=== PATIENT | female | born 1945 | race Caucasian/White ===

== ENCOUNTER → 2022-11-27 | Outpatient (CLI) | payer MEDICARE, BC, SELFPAY ==
--- NOTE | 2022-11-27 08:55 | BD_ITS ---
STUDY: DUAL ENERGY X-RAY ABSORPTIOMETRY / DXA REASON FOR EXAM: Female, 77 years old. SCREENING TECHNIQUE: Bone Mineral Density (BMD) measurements of lumbar spine and bilateral hips were obtained. COMPARISON: None. FINDINGS: Lumbar Spine (L1-L4): g/cm2 (0.869) / T-score (-1.6) / Z-score (0.9) Findings are suggestive of osteopenia with a moderate fracture risk. Left Femur Total: g/cm2 (0.660) / T-score (-2.3) / Z-score (-0.4) Left Femoral Neck: g/cm2 (0.470) / T-score (-3.4) / Z-score (-1.3) Right Femur Total: g/cm2 (0.661) / T-score (-2.3) / Z-score (-0.4) Right Femoral Neck: g/cm2 (0.505) / T-score (-3.1) / Z-score (-0.9) BD/Dexa Bone Density Study IMPRESSION: The patient is considered osteoporotic as outlined below according to World [employer] (WHO) criteria with a high fracture risk. Reference Information: The T-score is the number of standard deviations above or below the standard which is normal for young adults at their peak bone mineral density. The World Health Organization (WHO) interprets the T-scores as follows: Above -1 Normal bone density Between -1 and -2.5 Osteopenia Equal to / or below -2.5 Osteoporosis As a practical clinical guideline, osteopenia may be graded as follows: Mild -1 through -1.5 Moderate -1.6 through -2.0 Severe -2.1 through -2.4 The Z-score is the number of standard deviations above or below age-matched controls. A Z-score of less than -1.5 would be considered abnormal. References: 1. NIH Osteoporosis and Related Bone Diseases www osteo.org 2. International Society for Clinical Densitometry www iscd.org 3. National Osteoporosis Foundation www nof.org Electronically Signed: Chepe Ball MD at 12:24 EDT ,
== END | disposition home or self-care (01) ==
LOC: OPBD 08:47
PROVIDERS: PCP Family Medicine; Referring Provider Internal Medicine Hematology & Oncology; Visit Provider Internal Medicine Hematology & Oncology
DX: Z78.0 Asymptomatic menopausal state (principal)
CPT/HCPCS: 77080

== ENCOUNTER 2023-02-01 13:46 | Outpatient (RCR) | payer MEDICARE, BC, SELFPAY ==
[2023-05-21 15:57] VITALS: BP 129/85; PULSE 88; RESP 16; TEMP 36.8; O2SAT 97
== END 2023-02-01 19:00 | disposition home or self-care (01) ==
LOC: PT 13:46
PROVIDERS: PCP Family Medicine; Referring Provider Internal Medicine Hematology & Oncology; Visit Provider Internal Medicine Hematology & Oncology
DX: M81.0 Age-related osteoporosis without current pathological fracture (principal)
CPT/HCPCS: 97110; 97161

== ENCOUNTER 2023-05-03 17:07 | Emergency (ER) | payer MEDICARE, BC, SELFPAY ==
[2023-05-03 17:08] VITALS: BP 116/83; PULSE 115; RESP 16; TEMP 37.2; O2SAT 98; BMI 31.4
[2023-05-03 17:39] LABS: Mucous, Urine 0 SEEN /hpf (<or=2+); Red Blood Cells-Urine 0 SEEN /hpf (0-5); Squamous Epithelial Cells - UA 0 SEEN /hpf (5-10)
[2023-05-03 17:49] LABS: Color, Urine Yellow (Yellow); Glucose, Dipstick Normal (Normal); Ketone-Dipstick Negative (Negative); Leukocyte Esterase-Dipstick 500 /ul (Negative); Nitrite-Dipstick Positive (Negative); Occult Blood-Urine 250 /ul (Negative); Protein-Dipstick 30 mg/dl (Negative); Urine Bilirubin Dipstick Negative (Negative); Urine Clarity Sl. Cloudy (Clear); Urine Urobilinogen Normal (Normal)
[2023-05-03 18:02] LABS: Bacteria 1+ /hpf (None Seen); White Blood Cells >100 SEEN /hpf (0-5)
--- NOTE | 2023-05-03 18:22 | EDS_ITS ---
HPI History of Present Illness Chief Complaint: Complaint Informant: patient Onset/Context/Timing Onset: Weeks (1) Context: Gradual Onset Timing: Continuous Quality: Aching Location: Lower abdomen and low back Worsened by: Nothing Relieved by: Nothing Narrative Narrative: Patient presents with bladder infection that has been getting worse over the past week. Patient admits to some urgency and frequency. Patient admits to some mild dysuria. Patient states that today she noted some pain up into her back. Patient denies any fevers or chills. Patient denies any nausea or vomiting. Patient states nothing makes her symptoms better nothing makes them worse. Patient states she recently completed a course of amoxicillin for urinary tract infection. Patient states her symptoms improved for a couple days and then returned. Patient states she has had a recent urine culture which grew out E. coli and was sensitive to amoxicillin. Patient states she also was diagnosed with a urinary tract infection a few weeks ago and was given a prescription for Macrobid. Patient states her symptoms improved after taking the Macrobid but returned after 1 week. PFSH PFS Medical History Breast cancer Colon cancer Constipation COVID Encounter for education GERD (gastroesophageal reflux disease) Hypertension Liver metastases Osteoporosis Regional lymph node metastasis present SOB (shortness of breath) on exertion Home Medications losartan 50 mg tablet 50 mg PO BID 05/15/22 [History Last Taken Unknown] metoprolol tartrate 25 mg tablet 25 mg PO BID 05/15/22 [History Last Taken Unknown] cholecalciferol (vitamin D3) 10 mcg (400 unit) capsule 10 mcg PO DAILY 11/27/22 [History Last Taken Unknown] esomeprazole magnesium 20 mg capsule,delayed release 20 mg PO DAILY 01/29/23 [History Last Taken Unknown] fluconazole 150 mg tablet 150 mg PO ONCE #1 TAB 04/25/23 [Rx Last Taken Unknown] nitrofurantoin monohydrate/macrocrystals 100 mg capsule 100 mg PO Q12 #14 CAPSULES 05/03/23 [Rx Last Taken Unknown] Allergy/AdvReac Type Severity Reaction Status Date / Time levofloxacin [From Levaquin] AdvReac Mild PT UNSURE Verified 05/03/23 17:08 OF REACTION Family History Sister Breast cancer, Onset Age: 58 Mother , age 92 Cancer unknown type Surgical History History of surgery of liver Hx of partial mastectomy S/P laparoscopic-assisted sigmoidectomy Social History household members: spouse Smoking Status: Never smoker alcohol intake: never substance use type: does not use ROS ROS ED Constitutional Constitutional ED: Denies chills or fever(s) Eyes Eyes: Denies blurry vision or change in vision ENT ENT ED: Denies rhinorrhea or sore throat Cardiovascular Cardiovascular: Denies chest pain or palpitations Respiratory/Chest Respiratory/Chest: Denies cough or dyspnea Gastrointestinal Gastrointestinal: Reports abdominal pain; Denies nausea or vomiting Genitourinary Genitourinary ED: Reports urinary frequency; Denies dysuria or hematuria Musculoskeletal Musculoskeletal: Reports back pain; Denies neck pain Integumentary Denies abscess or rash Neurologic Neurologic: Reports headache(s); Denies weakness Allergic/Immunologic Allergic/Immunologic ED: Denies mouth swelling or urticaria EXAM Physical Exam Const Vital Signs: 05/03/23 17:08 Temperature 98.9 F Temperature Source Temporal Pulse Rate 115 H Respiratory Rate 16 Blood Pressure 116/83 H Blood Pressure Mean 94 Pulse Ox 98 Oxygen Delivery Method Room Air Positive well nourished and well developed General Appearance ED: well developed and NAD HEENT Reports moist mucous membranes Neck supple and no JVD Resp normal respiratory effort and clear to auscultation bilaterally Cardio regular rate and regular rhythm GI non-distended Palpation: soft and tender LLQ, RLQ and suprapubic; Negative for guarding or rebound tenderness present Back/Spine General Back: CVA tenderness bilateral (Mild) Neuro oriented x3, CN's II-XII intact bilaterally and no sensory deficits noted Sensorium / Orientation: alert Motor Exam: strength 5/5 throughout Psych mental status grossly normal MDM MDM MDM Narrative Medical decision making narrative: Differential diagnosis includes urinary tract infection and candidiasis. Urinalysis will be obtained to assess for urinary tract infection. Lab Data Attestation: I reviewed the patient's lab results. Lab results narrative: Urinalysis was reviewed. Leukocyte esterase was 500 with greater than 100 white blood cells and 1+ bacteria. There were positive nitrates. Labs: Laboratory Results - last 24 hr 05/03/23 17:26 Urine Color Yellow Urine Clarity Sl. Cloudy Urine pH 6.0 Ur Specific [place] 1.010 Urine Protein 30 H Urine Glucose (UA) Normal Urine Ketones Negative Urine Occult Blood 250 H Urine Nitrite Positive H Urine Bilirubin Negative Urine Urobilinogen Normal Ur Leukocyte Esterase 500 H Urine RBC 0 SEEN Urine WBC >100 SEEN Ur Squamous Epith Cells 0 SEEN Urine Bacteria 1+ Urine Mucus 0 SEEN Treatment and Re-Evaluation :: Patient was advised of her findings. Urine culture was ordered. Patient was given a dose of Macrobid here. Patient was given a prescription for Macrobid. Patient was instructed to follow-up with her primary care physician in 5 to 7 days for recheck and culture results. Patient was instructed to return if worse in any way. Patient understood and was agreeable with the plan. All questions were answered. Discharge Plan Triage Chief Complaint: Complaint ED Provider: Jason Toribio Dx/Rx/DC Orders Clinical Impression: UTI (urinary tract infection), Hypertension Instructions: ED Cystitis Female Adult Prescriptions: New nitrofurantoin monohyd/m-cryst [nitrofurantoin monohyd/m-cryst] 100 mg capsule 100 mg PO Q12 Qty: 14 0RF No Action metoprolol tartrate 25 mg tablet 25 mg PO BID losartan 50 mg tablet 50 mg PO BID cholecalciferol (vitamin D3) 10 mcg (400 unit) capsule 10 mcg PO DAILY esomeprazole magnesium 20 mg capsule,delayed release(DR/EC) 20 mg PO DAILY fluconazole 150 mg tablet 150 mg PO ONCE Qty: 1 0RF Rx Instructions: as a single dose Primary Care Provider: Alisha Dinh Referrals: Alisha Dinh, [Primary Care Provider] - 5-7 Days Disposition Disposition: Home, Self Care
[2023-05-03] MEDS: Nitrofurantoin Macrocrystals 100 MG Capsule PO (18:45)
== END 2023-05-03 18:46 | disposition home or self-care (01) ==
PROVIDERS: Emergency Provider Emergency Medicine; PCP Family Medicine; Visit Provider Emergency Medicine
DX: N39.0 Urinary tract infection, site not specified (principal); I10 Essential (primary) hypertension; Z86.16 Personal history of COVID-19
CPT/HCPCS: 81001; 87077; 87086; 87088; 87186; 99282

== ENCOUNTER → 2023-05-17 | Outpatient (CLI) | payer MEDICARE, BC, SELFPAY ==
--- NOTE | 2023-05-17 08:48 | BI_ITS ---
MAMMOGRAPHY - BILATERAL DIAGNOSTIC REASON FOR EXAM: Female, 78 years old. Follow-up for right breast cancer. PERTINENT HISTORY: Personal history of breast cancer. Prior right lumpectomy with radiation. Sister with breast cancer. TECHNIQUE: Digital bilateral breast piero (3D mammographic acquisition) in the CC and MLO projections. 2-D mediolateral oblique (MLO) and craniocaudad (CC) views of both breasts were obtained. CAD: Full Field Digital Mammography with Computer Added Detection was performed. COMPARISON: Comparison is made with prior outside examination of March 28, 2022 and August 08, 2021. FINDINGS: Breast Composition: The breasts are heterogeneously dense, which may obscure small masses. There are no dominant masses or suspicious calcifications. Surgical clips are seen in the right axilla. No other significant abnormalities are identified. There has been no significant change since the prior study. BI/DIAG MAMM W/CAD, BILAT IMPRESSION: Stable bilateral diagnostic mammogram. One year follow-up recommended. (A) ASSESSMENT CATEGORY: BIRADS Category 2: Benign. A letter regarding these results will be sent to the patient by the facility within 30 days. Approximately 10% of breast cancers are not detected by mammography. A normal mammogram should not delay biopsy of a clinically suspicious abnormality. Electronically Signed: Chepe Ball MD at 10:45 EST ,
== END | disposition home or self-care (01) ==
LOC: OPBI 08:45
PROVIDERS: PCP Family Medicine; Referring Provider Student in an Organized Health Care Education/Training Program; Visit Provider Student in an Organized Health Care Education/Training Program
DX: C50.311 Malignant neoplasm of lower-inner quadrant of right female breast (principal); C50.911 Malignant neoplasm of unspecified site of right female breast
CPT/HCPCS: 77062; 77066; G0279

== ENCOUNTER → 2023-10-17 | Outpatient (CLI) | payer MEDICARE, BC, SELFPAY | END | disposition home or self-care (01) | PROVIDERS: PCP Nurse Practitioner; Referring Provider Nurse Practitioner; Visit Provider Nurse Practitioner | DX: G47.10 Hypersomnia, unspecified (principal); R53.83 Other fatigue; I10 Essential (primary) hypertension | CPT/HCPCS: 95806 ==

== ENCOUNTER → 2023-12-16 | Outpatient (CLI) | payer MEDICARE, BC, SELFPAY ==
--- NOTE | 2023-12-16 15:15 | RAD_ITS ---
EXAM: XR LEFT SHOULDER COMPLETE, 2 OR MORE VIEWS CLINICAL INDICATION: left shoulder pain TECHNIQUE: Two or more views of the left shoulder. COMPARISON: No relevant prior studies available. FINDINGS: BONES/JOINTS: Unremarkable. No acute fracture. No subluxation. Normal alignment. Preservation of the joint space. No sclerotic or destructive changes observed. Degenerative changes of the spine at multiple levels. SOFT TISSUES: Small focus of soft tissue calcification along the posterior greater tubercle most likely representing infraspinatus calcific tendinitis. No soft tissue swelling or gas. No radiopaque foreign body. RAD/Shoulder min 2 Views IMPRESSION: No acute or healing fracture or malalignment. Small focus of soft tissue calcification along the posterior greater tubercle most likely representing infraspinatus calcific tendinitis. Electronically Signed: Rashel Alberto MD at 4:46 EDT ,
== END | disposition home or self-care (01) ==
LOC: RAD 14:59
PROVIDERS: PCP Nurse Practitioner; Referring Provider Nurse Practitioner; Visit Provider Nurse Practitioner
DX: M25.512 Pain in left shoulder (principal)
CPT/HCPCS: 73030

== ENCOUNTER 2024-02-03 14:00 | Outpatient (RCR) | payer MEDICARE, BC, SELFPAY ==
--- NOTE | 2023-12-25 16:50 | HP.PTEVAL_ITS ---
Patient's Visit Information Visit Information Visit Information: CAROL CLINE is a 78 year old F referred to Physical Therapy by CALISTA Pruitt with a diagnosis of Left Shoulder Pain. Date of Evaluation: 12/25/23 Physical Therapist: Jenny Adams DPT Visit Plan Frequency: 2x /Week Duration: 4 Weeks Plan: Scapular strength/stabilization HEP Given IE: Postural education, mid row, bilateral ER, scapular retraction Subjective Subjective: Left shoulder pain- on/off- this bout has been about 6 weeks- insidious onset this time. No rhyme or reason and had 2 weeks that her neck hurt so bad. The pain is in the anterior shoulder, across the acromion and in the scapula depending onw hat she does. Worst: 31/03 agg: pulling up the covers, folding the towel, she can't pinpoint it. Intermittent- feels that it catches. Sharp, shooting pain- the pain will radiate down to the wrist but does not happen very often. No N/T in the hand. Eases: rest, ice. She has not had an MRI but did have an x-ray. She had a cortisone injection on Saturday and did not feel that it helped. Does have some neck pain in the UT but the increased pain is gone. Sleep: not disturbed. Right hand dominate. No changes in the past few months of lifestlye or anything that she can think of. She drives a lot. PMHx/Meds: see list in chart Objective Objective: Posture: forward head, rounded shoulders- can correct but does not maintain Gait: good arm swing and trunk rotation Palpation: tender along infraspinatus, and medial border of the scapula ROM: WNL in all range of the cervical and UE Strength: Scap: fair minus, Shoulder: 4/5 throughout flexion/abd, 4+/5 IR/ER/Extn, Elbow: 5/5, [employer]: good Special Tests L Shoulder Drop Sign - IS Test: Negative L Shoulder Empty Can - SS: Negative L Shoulder Belly Press - SupScap: Negative L Shoulder Neer - Impingement: Positive L Shoulder Perez Jim - Impingement: Positive Balance/Special Test Scores Quick DASH Score: 22.7250 Goals Goal 1:: Patient will be I with HEP and progression Goal Time Frame: 4-6 Weeks Goal 2:: Patient will maintain proper posture t/o tx session to demo increased scap s/s Goal Time Frame: 4-6 Weeks Goal 3:: Patient will report 80% improvement Goal Time Frame: 4-6 Weeks Rehabilitation Potential Physical Therapy Diagnosis: Patient presents with decreased scapular strength/stabilization and muscular endurance leading to poor posture and increased pain with ADL's. Rehabilitation Potential: Good Anticipated Interventions Patient/Client Instruction: Educate patient on: Benefits of Fitness Program Therapeutic Exercise to Include: Strength training, Endurance training, Coordination, Agility training, Body mechanics, Postural training, Neuromotor development, Passive ROM, Active ROM, Dynamic Lumbar Stabilization and Scapular Strength/Stabilization For the Purpose of:: To improve muscle performance and motor function TENS: No Cryotherapy (ice pack, ice massage): Yes Thermo therapy (hot pack): Yes Ultrasound (thermal/non thermal): No Text: Thank you for the opportunity to evaluate your patient. For Medicare and Medicare HMO plans, please review the plan of care and approve it. It will need to be FAXED BACK to us at [phone] for Medicare purposes. For Medicare only, by signing this I certify the plan of care. Please let me know if there are questions or concerns regarding this plan of care. Physician Signatur e: Date:
--- NOTE | 2024-02-03 14:49 | HP.PTDCSUM ---
Discharge Summary D/C summary: It has been my pleasure to treat CAROL CLINE referred by CALISTA Pruitt, with the diagnosis of Left Shoulder Pain for a total of 8 visit(s). Discharge Date: Please see the following information for a summary of their discharge status. Subjective Subjective: Pt. reports overall doing much better. She reports being 70% better overall. Sleeping without issues. Pt. pleased with PT. Pt. reports being HEP compliant. Overall Improvement % Improvement: 70 Objective Objective/Function: ROM: Pt. has symmetrical pain free ROM without increase in symptoms. MMT: Pt. has symmetrical strength throughout B shoulders without increase in symptoms. Pt. is sleeping without issues. Pt. pleased. Pt. is overall going well. Pt. will be DC from PT at this point in time. She is to continue with exercises 3-4 times per week. I gave her a blue band this date. Goals Goal 1:: Patient will be I with HEP and progression Goal Progress: Goal Met Goal 2:: Patient will maintain proper posture t/o tx session to demo increased scap s/s Goal Progress: Goal Met Goal 3:: Patient will report 80% improvement Goal Progress: Goal Met Plan Plan: Pt. to be DC from PT at this point in time. D/C Information d/c sentence: If there are questions or concerns regarding this patient's physical therapy, please feel free to call me at [phone]. Thank you for the referral of this patient. Sincerely, Faisal Vanessa, DPT Balance/Gait/Functional tests Balance/Special Test Scores Quick DASH Score: 13.6350 Improvement % Improvement: 70
== END 2024-02-03 19:00 | disposition home or self-care (01) ==
LOC: PT 14:00
PROVIDERS: PCP Nurse Practitioner; Referring Provider Nurse Practitioner; Visit Provider Nurse Practitioner
DX: M25.512 Pain in left shoulder (principal); G89.29 Other chronic pain
CPT/HCPCS: 97110; 97162; 97530

== ENCOUNTER → 2024-02-28 | Outpatient (CLI) | payer MEDICARE, BC, SELFPAY | END | disposition home or self-care (01) | PROVIDERS: PCP Nurse Practitioner; Referring Provider Physician Assistant Surgical; Visit Provider Physician Assistant Surgical | DX: N39.0 Urinary tract infection, site not specified (principal) | CPT/HCPCS: 87077; 87086; 87088; 87186 ==

== ENCOUNTER 2024-03-01 07:57 | Emergency (ER) | payer MEDICARE, BC, SELFPAY ==
[2024-03-01 07:58] VITALS: BP 153/80; PULSE 61; RESP 14; TEMP 37.2; O2SAT 95; BMI 30.9
--- NOTE | 2024-03-01 08:13 | CT_ITS ---
STUDY: CTA CHEST REASON FOR EXAM: Female, 79 years old. History of cancer, recent travel, palpitations RADIATION DOSAGE (If Supplied By Facility): CTDIvol = ( 14.98 ) mGy, DLP = ( 443.95 ) mGycm TECHNIQUE: The examination was performed with the intravenous administration of IV 100mL Isovue-370. Post-processing of the angiographic images was performed, with multiplanar reformation and 3D reconstruction. The protocol utilizes one or more of the following dose reduction techniques: automated exposure control, adjustment of mA and/or kV according to patient size,and/or use of iterative reconstruction technique. COMPARISON: PET/CT dated August 14, 2022 and October 01, 2023 FINDINGS: Normal enhancement of the main pulmonary artery and right and left pulmonary arteries. Normal enhancement of the bilateral peripheral pulmonary arteries. There is no demonstrated pulmonary embolism. There are peripheral calcifications of the descending thoracic aorta. There is no demonstrated aortic dissection. Normal heart and pericardium. There are no coronary artery calcifications. Normal mediastinum. Normal hilar regions. Normal visualized trachea and bronchi. There is stable minimal atelectasis and/or scarring within the mid and lower lungs. There is no new focal consolidation. There are stable postsurgical changes within the right breast There are degenerative changes of thoracic spine. There is a stable radiolucency with a sclerotic margin within the right eighth lateral rib, may reflect a bone cyst. The limited images of the upper abdomen is trace stable postsurgical changes of the liver there are stable low-attenuation foci scattered throughout the visualized liver. CT/CTA Chest W/WO Contrast IMPRESSION: No demonstrated pulmonary embolism or arterial dissection. No acute cardiopulmonary process. Electronically Signed: Jessica Davalos MD at 9:55 EDT ,
--- NOTE | 2024-03-01 08:13 | EKG12_ITS ---
Test Reason : PALPITATIONS Blood Pressure : / mmHG Vent. Rate : 060 BPM Atrial Rate : 060 BPM P-R Int : 226 ms QRS Dur : 058 ms QT Int : 396 ms P-R-T Axes : 056 023 065 degrees QTc Int : 396 ms Sinus rhythm with 1st degree A-V block with Premature atrial complexes with Aberrant conduction Low voltage QRS Nonspecific ST and T wave abnormality Abnormal ECG Confirmed by Michael Strickland ([id number]), staff editor SUSAN BRUNER ([id number]) on 03/03/2024 9:27:12 AM Referred By: TB Confirmed By:Michael Strickland
[2024-03-01] MEDS: 0.9% Normal Saline (1000mL) 1,000 ML 999 ML IV (08:23)
[2024-03-01 08:25] LABS: Absolute Lymphocyte Count 0.81 X10^3/uL (0.83-4.51); Absolute Neutrophil Count 2.9 X10^3/uL (2.0-7.7); Basophil# 0.04 X10^3/uL; Basophil% 0.9 % (0-1); Eosinophil# 0.11 X10^3/uL; Eosinophils% 2.5 % (0-5); Hematocrit 41.9 % (37-47); Hemoglobin 13.3 g/dL (12.0-15.0); Lymphocyte # 0.81 X10^3/ul (0.83-4.51); Lymphocyte % 18.7 % (19-41); Mean Corp Hgb Conc 31.7 g/dL (32-36); Mean Corpuscular Hgb 28.1 pg (27.0-32.0); Mean Corpuscular Volume 88.6 fL (81-99); Monocyte# 0.48 X10^3/uL; Monocyte% 11.1 % (0-10); NRBC Flagged by Analyzer 0 % (0-5); Neutrophil # 2.89 X10^3/uL (2.7-7.7); Neutrophil % 66.6 % (47-70); Platelet Count 170 K/mm3 (150-450); RBC Distribution Width CV 14.4 % (11.6-14.6); RBC Distribution Width SD 46.6 fl (35.1-43.9); Red Blood Count 4.73 M/mm3 (4.2-5.4); White Blood Count 4.3 K/mm3 (4.4-11.0)
[2024-03-01 08:30] LABS: International Normalized Ratio 1.1; Partial Thromboplast Time 31.9 Seconds (24.1-36.2); Prothrombin Time (Protime)PT. 13.7 SECONDS (11.7-14.9)
[2024-03-01 08:44] LABS: BNP,B-Type NATRIURETIC PEPTIDE 46.1 pg/mL (0-100)
--- NOTE | 2024-03-01 08:45 | EDS_ITS ---
HPI History of Present Illness Chief Complaint: Palpitations Narrative Narrative: Patient is a 71-year-old female with a past medical history of hypertension, GERD, osteoporosis, breast cancer, liver metastases, colon cancer who presented to the emergency department chief complaint of palpitations. She states that yesterday she noted that she had some palpitations but that this was caffeine related and she states that she does not do well with caffeine. States that this morning woke her up out of his sleep noted that her heart was beating and she states that I think I had PACs and PVCs states that this felt different therefore she came here for the valuation management. Patient states that she does not have any history of blood clots she states that she does have a recent travel history to several different states. Denies any recent sick contacts. Patient also notes that she has been treated for urinary tract infection with Macrobid. States that she completed a course seem to have persistent symptoms so they did a another course of Macrobid with a week in between. [facility] Medical History Sleep apnea Osteoarthritis (06/10/1967) Cataract (06/10/17) Cancer (09/07/07) Breast cancer (09/07/07) Osteoporosis Encounter for education Hypertension GERD (gastroesophageal reflux disease) Regional lymph node metastasis present Liver metastases Constipation SOB (shortness of breath) on exertion COVID Colon cancer Breast cancer Home Medications ?Medication ?Instructions ?Recorded ?Last Taken ?Type cholecalciferol (vitamin D3) 10 10 mcg PO DAILY 11/27/22 Unknown History mcg (400 unit) capsule losartan 50 mg tablet 50 mg PO BID 90 days #180 tabs 10/10/23 Unknown Rx metoprolol tartrate 25 mg tablet 25 mg PO BID 90 days #180 tabs 10/10/23 Unknown Rx pantoprazole 40 mg tablet,delayed 40 mg PO DAILY #90 tabs 01/20/24 Unknown Rx release nitrofurantoin 1 cap PO Q12H 10 days #20 caps 02/28/24 Unknown Rx monohydrate/macrocrystals 100 mg capsule Allergy/AdvReac Type Severity Reaction Status Date / Time levofloxacin (From Levaquin) AdvReac Mild PT UNSURE Verified 02/28/24 16:17 OF REACTION Family History Sister Breast cancer, Onset Age: 58 Mother , age 92 Cancer unknown type Surgical History History of colonoscopy (10/27/20) History of cataract surgery (06/10/17) History of breast biopsy (09/07/07) History of thoracic surgery S/P lumpectomy, right breast History of surgery of liver S/P laparoscopic-assisted sigmoidectomy Social History adopted: No household members: spouse number of children: 3 current occupational status: retired pets and animals: No Smoking Status: Never smoker alcohol intake: never substance use type: does not use caffeine: No frequency: does not exercise seatbelt use: always do you feel safe at home: Yes ROS ROS ED ROS Narrative Constitutional: Denies any fevers, chills, headaches, lightness, dizziness Eyes: Denies changes with double vision Cardiovascular: Complains of palpitations as noted above denies chest pain Respiratory: Denies coughing wheezing shortness of breath Abdomen: Denies abdominal pain nausea vomit diarrhea : States that she has been treated for urinary tract infection as noted above Neurological: Denies numbness, and some tingling Musculoskeletal: Denies back pain Skin: Denies rashes or lesions EXAM Physical Exam Narrative Exam Narrative: General: Patient lying in bed rest comfortably did not appear to be in acute distress Head: Atraumatic, normocephalic Eyes: PERRL bilateral, EOMI bilateral, no conjunctival injection noted Neck: Soft, supple, trachea midline Cardiovascular: Regular rate and rhythm no murmurs gallops rubs noted Respiratory: Clear to auscultation bilaterally no rales rhonchi or wheeze noted Abdomen: Soft, nondistended, nontender to palpation, bowel sounds present x 4 Extremities: +5/5 strength noted in the bilateral upper and lower extremities, radial pulses +2/4 in the bilateral per extremities, no pedal edema no exam Neurological: Patient is following commands knew that she was at [facility] year is 2023 Skin: Warm, dry, intact Const Vital Signs: 03/01/24 07:58 03/01/24 08:17 03/01/24 10:00 Temperature 98.9 F Temperature Source Temporal Pulse Rate 61 58 L Respiratory Rate 14 16 Blood Pressure 153/80 H 145/63 H Blood Pressure Mean 104 90 Pulse Ox 95 97 Oxygen Delivery Method Room Air Room Air Room Air MDM MDM MDM Narrative Medical decision making narrative: Patient is a 79-year-old female who presented to the emerged part with chief complaint of palpitations. Patient blood work performed here on the differential diagnose includes but not limited to hyperthyroidism, ACS, PE, PVCs, PACs once workup is obtained reviewed she will be reevaluated. Patient's CBC reviewed showed a white blood count of 4.3, hemoglobin stable 13.3, platelet count normal 170. Patient sodium normal 141, potassium normal 3.6, creatinine normal at 0.90. Patient magnesium normal at 2, troponin noted to be normal at 7 with a delta troponin obtained normal at 8, EKG reviewed showed sinus rhythm with first-degree heart block with a rate of 60 bpm with premature atrial complexes noted. Patient's proBNP normal at 46, TSH normal at 2.17, urinalysis showed 100 leukocyte esterase 0-5 white cells no bacteria seen. Patient's CTA of her chest reviewed no evidence of pulmonary embolism or arterial dissection no acute cardiopulmonary processes. Did discuss results with the patient and at this point time she would like to go home. Patient was encouraged to follow-up with her primary care physician and she was referred to a personal property assessor. She will be given a Holter monitor here in the emergency department. She was advised to return with worsening symptoms or other concerns. Her and her family member at bedside are agreeable with this plan all question concerns answered she is discharged home in stable condition. Lab Data Labs: Laboratory Results - last 24 hr 03/01/24 03/01/24 03/01/24 08:10 09:30 10:40 WBC 4.3 L RBC 4.73 Hgb 13.3 Hct 41.9 MCV 88.6 MCH 28.1 MCHC 31.7 L RDW Std Deviation 46.6 H RDW Coeff of Luiz 14.4 Plt Count 170 MPV 10.0 Immature Gran % (Auto) 0.200 Neut % (Auto) 66.6 Lymph % (Auto) 18.7 L [place] % (Auto) 11.1 H Eos % (Auto) 2.5 Baso % (Auto) 0.9 Absolute Neuts (auto) 2.9 Absolute Lymphs (auto) 0.81 L Nucleated RBC % 0 PT 13.7 INR 1.1 APTT 31.9 Sodium 141 Potassium 3.6 Chloride 110 H Carbon Dioxide 27.0 Anion Gap 4 L BUN 14 Creatinine 0.90 Estim Creat Clear Calc 51.38 Est GFR (MDRD) Af Amer 78 Est GFR (MDRD) Non-Af 65 BUN/Creatinine Ratio 15.6 Glucose 106 Calcium 9.3 Magnesium 2.0 Troponin I High Sens 7 8 B-Natriuretic Peptide 46.1 TSH 2.170 Urine Color Yellow Urine Clarity Clear Urine pH 7.0 Ur Specific [place] 1.005 Urine Protein Negative Urine Glucose (UA) Normal Urine Ketones Negative Urine Occult Blood Negative Urine Nitrite Negative Urine Bilirubin Negative Urine Urobilinogen Normal Ur Leukocyte Esterase 100 H Urine RBC 0 SEEN Urine WBC 0-5 SEEN Ur Squamous Epith Cells 0 SEEN Urine Bacteria 0 SEEN Urine Mucus 0 SEEN Radiography Diagnostic Testing: Clinical Impression(s) from Imaging Studies Chest CTA 03/01/24 08:13 IMPRESSION: No demonstrated pulmonary embolism or arterial dissection. No acute cardiopulmonary process. Electronically Signed: Jessica Davalos MD at 9:55 EDT , Discharge Plan Triage Chief Complaint: Palpitations ED Provider: Marlon Bernard Dx/Rx/DC Orders Clinical Impression: Heart palpitations Instructions: ED Palpitations Prescriptions: No Action cholecalciferol (vitamin D3) 10 mcg (400 unit) capsule 10 mcg PO DAILY metoprolol tartrate 25 mg tablet 25 mg PO BID 90 Days Qty: 180 1RF losartan 50 mg tablet 50 mg PO BID 90 Days Qty: 180 1RF nitrofurantoin monohyd/m-cryst 100 mg capsule 1 cap PO Q12H 10 Days Qty: 20 0RF Rx Instructions: administer with a meal/food; swallow whole; do not open, crush, dissolve , or chew pantoprazole 40 mg tablet,delayed release (DR/EC) 40 mg PO DAILY Qty: 90 1RF Primary Care Provider: Monie Hernandez Referrals: Monie Hernandez, OPEN SOURCE DEVELOPER-C [Primary Care Provider] - Lanie Starr MD [Med Staff - Active Staff] - Activity Restrictions/Additional Instructions: Wear your Holter monitor. Return with worsening symptoms or other concerns. Follow-up your primary care physician as well as cardiology. Print Language: Mongolian Disposition Disposition: Home, Self Care
[2024-03-01 08:48] LABS: Anion Gap 4 (5-15); BUN 14 mg/dL (7-18); BUN/Creat Ratio 15.6 RATIO (10-20); Calcium,Total 9.3 mg/dL (8.5-10.1); Chloride 110 mmol/L (98-107); EST Glomerular Filtration Rate 65 mL/min (>60); Est Glom Filt Rate - Afr Amer 78 mL/min (>60); Estimated Creatinine Clearance 51.38 ml/min; Glucose 106 mg/dL (74-106); Potassium 3.6 mmol/L (3.5-5.1); Sodium Level 141 mmol/L (136-145); Troponin-I HS (w/2H Reflex) 7 pg/mL (3.0-54.0)
[2024-03-01 09:37] LABS: Bacteria 0 SEEN /hpf (None Seen); Mucous, Urine 0 SEEN /hpf (<or=2+); Red Blood Cells-Urine 0 SEEN /hpf (0-5); Squamous Epithelial Cells - UA 0 SEEN /hpf (5-10)
[2024-03-01 09:38] LABS: Color, Urine Yellow (Yellow); Glucose, Dipstick Normal (Normal); Ketone-Dipstick Negative (Negative); Leukocyte Esterase-Dipstick 100 /ul (Negative); Nitrite-Dipstick Negative (Negative); Occult Blood-Urine Negative /ul (Negative); Protein-Dipstick Negative (Negative); Specific Gravity, Urine 1.005 (1.002-1.030); Urine Bilirubin Dipstick Negative (Negative); Urine Clarity Clear (Clear); Urine Urobilinogen Normal (Normal)
[2024-03-01 09:44] LABS: White Blood Cells 0-5 SEEN /hpf (0-5)
[2024-03-01 10:00] VITALS: BP 145/63; PULSE 58; RESP 16; O2SAT 97
[2024-03-01 10:17] LABS: Reflex Troponin-HS? (from REC) Y
[2024-03-01 11:05] LABS: Troponin-I HS 8 pg/mL (3.0-54.0)
[2024-03-01 12:12] VITALS: BP 134/54; PULSE 54; RESP 16; TEMP 36.1; O2SAT 99
== END 2024-03-01 12:13 | disposition home or self-care (01) ==
PROVIDERS: Emergency Provider Emergency Medicine; PCP Nurse Practitioner; Visit Provider Emergency Medicine
DX: R00.2 Palpitations (principal); I10 Essential (primary) hypertension; K21.9 Gastro-esophageal reflux disease without esophagitis; Z79.899 Other long term (current) drug therapy; Z86.16 Personal history of COVID-19
CPT/HCPCS: 71275; 80048; 81001; 83735; 83880; 84443; 84484; 85025; 85610; 85730; 93005; 93225; 93226; 99284; J7030; Q9967; A4216

== ENCOUNTER → 2024-03-01 | Outpatient (CLI) | payer MEDICARE, BC, SELFPAY | END | disposition home or self-care (01) | LOC: PSN 12:04 | PROVIDERS: PCP Nurse Practitioner; Visit Provider Emergency Medicine | DX: R00.2 Palpitations (principal) | CPT/HCPCS: 93225; 93226 ==

== ENCOUNTER → 2024-03-30 | Outpatient (CLI) | payer MEDICARE, BC, SELFPAY ==
--- NOTE | 2024-03-30 09:18 | US_ITS ---
STUDY: ULTRASOUND BREAST - LEFT REASON FOR EXAM: Female, 79 years old. Left axillary abnormality on the recent PET scan. TECHNIQUE: Axial and longitudinal images of the LEFT breast were performed with a high resolution ultrasound transducer. # OF IMAGES: 24 COMPARISON: Comparison is made with prior mammogram done earlier in the day as well as the PET scan dated March 17, 2024. FINDINGS: LEFT Breast: The left axilla was examined with ultrasound. There is evidence of a 7 mm x 6 mm x 5 mm hypoechoic nodule with echogenic border. This may represent a small lymph node. US/Breast Limited Unilateral IMPRESSION: Findings suggestive of a small lymph node in the left axilla. ASSESSMENT CATEGORY: BIRADS Category 2: Benign. A letter regarding these results will be sent to the patient by the facility within 30 days. Electronically Signed: Chepe Ball MD at 14:33 EDT ,
--- NOTE | 2024-03-30 09:18 | BI_ITS ---
MAMMOGRAPHY - BILATERAL DIAGNOSTIC REASON FOR EXAM: Female, 79 years old. History of breast cancer. Prior right breast lumpectomy with radiation. PERTINENT HISTORY: Personal history of breast cancer. Sister with breast cancer. TECHNIQUE: Digital bilateral breast piero (3D mammographic acquisition) in the CC and MLO projections. 2-D mediolateral oblique (MLO) and craniocaudad (CC) views of both breasts were obtained. CAD: Full Field Digital Mammography with Computer Added Detection was performed. COMPARISON: Comparison is made with prior study dated May 17, 2023. FINDINGS: Breast Composition: The breasts are heterogeneously dense, which may obscure small masses. There are no dominant masses or suspicious calcifications. Once again, the patient status post lumpectomy of the right breast with the decreased size of the right breast. Surgical clips are seen in the right axilla. No other significant abnormalities are identified. There has been no significant change since the prior study. BI/DIAG MAMM W/CAD, BILAT IMPRESSION: Stable bilateral diagnostic mammogram. With the patient''s history of a positive PET scan in the left axilla, correlation with ultrasound is recommended. ASSESSMENT CATEGORY: BIRADS Category 0: Incomplete. Need additional imaging evaluation. A letter regarding these results will be sent to the patient by the facility within 30 days. Approximately 10% of breast cancers are not detected by mammography. A normal mammogram should not delay biopsy of a clinically suspicious abnormality. Electronically Signed: Chepe Ball MD at 11:19 EDT ,
== END | disposition home or self-care (01) ==
LOC: OPBI 09:18
PROVIDERS: PCP Nurse Practitioner; Referring Provider Nurse Practitioner Family; Visit Provider Nurse Practitioner Family
DX: C50.311 Malignant neoplasm of lower-inner quadrant of right female breast (principal); R22.32 Localized swelling, mass and lump, left upper limb
CPT/HCPCS: 76642; 77062; 77066; G0279

== ENCOUNTER → 2024-07-06 | Outpatient (CLI) | payer MEDICARE, BC, SELFPAY ==
--- NOTE | 2024-07-06 10:44 | US_ITS ---
EXAM: US LEFT UPPER EXTREMITY NON-VASCULAR, COMPLETE CLINICAL INDICATION: F/U ?LN ON PET US 03/2024 -- LEFT AXILLA TECHNIQUE: Real-time ultrasound scan of the left upper extremity with image documentation. COMPARISON: No relevant prior studies available. FINDINGS: SOFT TISSUES: Images were obtained of the left axilla. No abscess. No foreign body. LYMPH NODES: There are several lymph nodes present. These measure 1.2 x 1.1 x 0.9 cm, 0.8 x 1.0 x 0.6 cm, 2.6 x 2.5 x 0.9 cm and 2.1 x 1.1 x 2.1 cm. US/Ext Non Vasc Limited/Soft Tiss IMPRESSION: Multiple lymph nodes seen within the left axilla. There is no mass or fluid collection. Electronically Signed: Jimbo Rojas MD at 0:09 EST ,
== END | disposition home or self-care (01) ==
LOC: OPUS 10:43
PROVIDERS: PCP Internal Medicine; Referring Provider Internal Medicine Hematology & Oncology; Visit Provider Internal Medicine Hematology & Oncology
DX: R22.32 Localized swelling, mass and lump, left upper limb (principal)
CPT/HCPCS: 76882

== ENCOUNTER → 2024-08-11 | Outpatient (CLI) | payer MEDICARE, BC, SELFPAY ==
--- NOTE | 2024-08-11 13:00 | RAD_ITS ---
EXAM: XR Lumbosacral Spine, 4 or 5 Views CLINICAL INDICATION: TECHNIQUE: Frontal, lateral and bilateral oblique views of the lumbar spine. COMPARISON: No relevant prior studies available. FINDINGS: VERTEBRAE: Multilevel endplate degenerative change and disc disease of L3-S1. Normal alignment. No acute fracture. SACRUM/COCCYX: Unremarkable as visualized. No acute fracture. DISC SPACES: No acute findings. No significant narrowing. SOFT TISSUES: Unremarkable. RAD/L/S Spine Min 4 Views IMPRESSION: 1. No acute fracture. 2. Degenerative changes as above. Reading [facility]
== END | disposition home or self-care (01) ==
LOC: RAD 12:55
PROVIDERS: PCP Internal Medicine; Referring Provider Internal Medicine; Visit Provider Internal Medicine
DX: M54.16 Radiculopathy, lumbar region (principal)
CPT/HCPCS: 72110

== ENCOUNTER 2024-08-19 12:11 | Day surgery (SDC) | payer MEDICARE, BC, SELFPAY ==
--- NOTE | 2024-08-17 16:24 | PAT.ANESEVAL ---
Pre-Assessment Diagnosis/Proposed Procedure Planned Operative Procedure(s): COLONOSCOPY/EGD Anesthesia History Anesthesia History - instructional supervisor: Anesthesia History - instructional supervisor Hx Hospitalization No 08/17/24 12:31 Any Problems With Anesthesia No 08/17/24 12:31 Cholinesterase deficiency No 08/17/24 12:31 You/Your Family Experience No 08/17/24 12:31 fever (hyperthermia) with Relationship Recent Exposure to Contagious Disease Does patient have nerve No 08/17/24 12:31 stimulator Patient instructed to have device shut off --Does patient have Pacemaker or ICD? When Was Last Pacemaker Check QUESTION #4 FULL TEXT: You/Your Family Experience fever (hyperthermia) with Anesthesia Last Oral Intake Last Oral intake: Last Oral Intake NPO since Meds taken in AM with sips of water? Meds patient instructed to take am of surgery PONV PONV - instructional supervisor: PONV - instructional supervisor Female Yes 08/17/24 12:31 HX of Motion Sickness No 08/17/24 12:31 HX of N/V After Surgery No 08/17/24 12:31 Non-Smoker Yes 08/17/24 12:31 Duration of Surgery greater No 08/17/24 12:31 than 60 minutes Number of Risk Factors 2 08/17/24 12:31 PONV Score Moderate Risk 08/17/24 12:31 Height & Weight Height & Weight: Anesthesia: Height & Weight Height 5 ft 3 in 07/20/24 09:24 Respiratory Assessment Respiratory Assessment - instructional supervisor: Respiratory Tract Infection Hx - instructional supervisor Hx Respiratory Tract Infection No 08/17/24 12:31 STOP Sleep Apnea STOP Sleep Apnea - instructional supervisor: STOP Sleep Apnea - instructional supervisor Hx Hypertension Yes: CONTROLLED ON MED 08/17/24 12:31 Hx Sleep Apnea No 08/17/24 12:31 CPAP BIPAP Do you snore loudly (louder No 08/17/24 12:31 than talking or can be heard Do you often feel tired/ No 08/17/24 12:31 fatigued/ sleepy during daytime? Has anyone observed you stop No 08/17/24 12:31 breathing during sleep? STOP Results Negative 08/17/24 12:31 QUESTION #5 FULL TEXT : Do you snore loudly (louder than talking or can be heard through closed doors)? Tobacco Use History Tobacco Use History - instructional supervisor: Tobacco Use History - instructional supervisor Tobacco Use Smoking Status Never smoker 08/17/24 12:31 Hx Tobacco Use No 08/17/24 12:31 Years Smoking Packs Smoked per Day Smoking Cessation Date was within the last 15 years Hx Smoking Cessation Date Hx Smoking Cessation Counseling Hematologic Medial History Hematologic Hx - instructional supervisor: Hematologic Medical Hx - fourth hand Hx of Blood Transfusion No 08/17/24 12:31 Hx of Transfusion in last 3 No 08/17/24 12:31 Months Date of Last Transfusion (if within last 3 months) Ever experience any problems No 08/17/24 12:31 with transfusion(s)? Specify any problems Hx of Preganancy in last 3 No 08/17/24 12:31 Months Nurse Filling Out Transfusion VCHRISTIN 08/17/24 12:31 & Questions: Date: 08/17/24 08/17/24 12:31 Time: 12:32 08/17/24 12:31 Patient unable to answer at this time (ie. confused, unrespo /Reproduction History /Reproductive History - instructional supervisor: /Reproductive Hx- instructional supervisor Hx Now Gestational Age (in weeks): EDC: Hx Hx Para Hx Section SAB PFSH Medical History (Updated 08/17/24 @ 12:30 by Kellen Doe) Cardiology follow-up encounter Wears glasses History of steroid therapy Arthritis Back pain Gastric reflux Non-smoker CPAP (continuous positive airway pressure) dependence History of irregular heartbeat Borderline type 2 diabetes mellitus Obesity Lumbar radiculopathy Mass of left axilla Sleep apnea Osteoarthritis (06/10/1967) Cataract (06/10/17) Cancer (09/07/07) Breast cancer (09/07/07) Osteoporosis Encounter for education Hypertension GERD (gastroesophageal reflux disease) Regional lymph node metastasis present Liver metastases Constipation SOB (shortness of breath) on exertion COVID Colon cancer Breast cancer Home Medications ?Medication ?Instructions ?Recorded ?Last Taken ?Type cholecalciferol (vitamin D3) 10 10 mcg PO DAILY 11/27/22 Unknown History mcg (400 unit) capsule losartan 50 mg tablet 50 mg PO BID 90 days #180 tabs 04/09/24 Unknown Rx metoprolol tartrate 25 mg tablet 25 mg PO BID 90 days #180 tabs 04/09/24 Unknown Rx pantoprazole 40 mg tablet,delayed 40 mg PO DAILY #90 tabs 06/16/24 Unknown Rx release magnesium gluconate 500 mg tablet 500 mg PO DAILY 08/17/24 Unknown History Allergy/AdvReac Type Severity Reaction Status Date / Time levofloxacin (From Levaquin) AdvReac Mild PT UNSURE Verified 08/17/24 12:23 OF REACTION Family History Sister Breast cancer, Onset Age: 58 Mother , age 92 Cancer unknown type Surgical History History of colonoscopy (10/27/20) History of cataract surgery (06/10/17) History of breast biopsy (09/07/07) History of thoracic surgery S/P lumpectomy, right breast History of surgery of liver S/P laparoscopic-assisted sigmoidectomy Social History adopted: No household members: spouse number of children: 3 current occupational status: retired pets and animals: No Smoking Status: Never smoker alcohol intake: never substance use type: does not use caffeine: No frequency: does not exercise seatbelt use: always do you feel safe at home: Yes Audit: Pertinent Findings Pertinent Findings EKG Perinent findings: 03/01/2024 sinus rhythm first-degree AV block rate of 60 bpm PACs with aberrant conduction. Nonspecific ST and T wave abnormality. Consult pertinent findings: Cardiology 04/27/2024. Palpitations. Denied at this time. Holter monitor showed no runs of SVT JENN but frequent PACs and trigeminal pattern. No further evaluation. Recommendation Anesthesia Recommendation Anesthesia recommendation: OPTIMIZED for anesthesia
[2024-08-19] VITALS (9 sets, daily range): BP systolic 94–126; BP diastolic 56–70; PULSE 62–72; RESP 14–16; TEMP 36.4–36.8; O2SAT 95–100; BMI 30.4
--- NOTE | 2024-08-19 12:40 | PCM.PRE.AN2 ---
ASA Classification* ASA Classification ASA Classification: 2 Assessment & Plan Anesthesia* Anesthesia Assessment Anesthesia Assessment: Discussed sedation and/or anesthesia options, risks, benefits, and alternatives with patient/parents/legal guardian/POA. Questions invited. The patient/parents/legal guardian/POA seems to understand and agrees to proceed with anesthesia plan. Reviewed the physical assessment, medical history, allergy history and patient home medications list prior to surgery/procedure/anesthetic and documented any changes. Performed airway and anesthesia risk assessments. Anesthesia Type Anesthesia Type: General Anesthesia Focused Assessment* Temperature: 97.6 F Pulse Rate: 72 Blood Pressure: 126/70 Respiratory Rate: 14 Pulse Ox: 100 Airway Assessment Mouth opens: >3 cm Mallampati Score: II Focused Labs Anesthesia Preop lab: CBC WBC 5.2 K/mm3 (4.4-11.0) 07/14/24 13:02 07/14/24 RBC 4.73 M/mm3 (4.2-5.4) 07/14/24 13:02 07/14/24 Hgb 12.9 g/dL (12.0-15.0) 07/14/24 13:02 07/14/24 Hct 40.6 % (37-47) 07/14/24 13:02 07/14/24 Plt Count 178 K/mm3 (150-450) 07/14/24 13:02 07/14/24 CHEMISTRY Potassium 4.1 mmol/L (3.5-5.1) 07/14/24 13:02 07/14/24 Sodium 140 mmol/L (136-145) 07/14/24 13:02 07/14/24 Magnesium 2.0 mg/dL (1.6-2.6) 03/01/24 08:10 03/01/24 BUN 15 mg/dL (7-18) 07/14/24 13:02 07/14/24 Creatinine 0.88 mg/dL (0.55-1.02) 07/14/24 13:02 07/14/24 Glucose 117 mg/dL (74-106) H 07/14/24 13:02 07/14/24 TSH 2.170 uIU/mL (0.358-3.740) 03/01/24 08:10 03/01/24 COAG PT 13.7 SECONDS (11.7-14.9) 03/01/24 08:10 03/01/24 Pre-Assessment Diagnosis/Proposed Procedure Planned Operative Procedure(s): COLONOSCOPY/EGD Anesthesia History 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 When Was Last Pacemaker Check QUESTION #4 FULL TEXT: You/Your Family Experience fever (hyperthermia) with Anesthesia Last Oral Intake Last Oral intake: Last Oral Intake NPO since 21:30 08/19/24 12:30 Meds taken in AM with sips of water? Meds patient instructed to take am of surgery PONV PONV - heavy antiarmor weapons infantryman: PONV - heavy antiarmor weapons infantryman Female Yes 08/17/24 12:31 HX of Motion Sickness No 08/17/24 12:31 HX of N/V After Surgery No 08/17/24 12:31 Non-Smoker Yes 08/17/24 12:31 Duration of Surgery greater No 08/17/24 12:31 than 60 minutes Number of Risk Factors 2 08/17/24 12:31 PONV Score Moderate Risk 08/17/24 12:31 Height & Weight Height & Weight: Anesthesia: Height & Weight Height 5 ft 3 in 08/19/24 12:30 Weight: 78 kg 08/19/24 12:30 Body Mass Index (BMI) 30.4 08/19/24 12:30 Respiratory Assessment Respiratory Assessment - heavy antiarmor weapons infantryman: Respiratory Tract Infection Hx - heavy antiarmor weapons infantryman Hx Respiratory Tract Infection No 08/17/24 12:31 STOP Sleep Apnea STOP Sleep Apnea - heavy antiarmor weapons infantryman: STOP Sleep Apnea - heavy antiarmor weapons infantryman Hx Hypertension Yes: CONTROLLED ON MED 08/17/24 12:31 Hx Sleep Apnea No 08/17/24 12:31 CPAP BIPAP Do you snore loudly (louder No 08/17/24 12:31 than talking or can be heard Do you often feel tired/ No 08/17/24 12:31 fatigued/ sleepy during daytime? Has anyone observed you stop No 08/17/24 12:31 breathing during sleep? STOP Results Negative 08/17/24 12:31 QUESTION #5 FULL TEXT : Do you snore loudly (louder than talking or can be heard through closed doors)? Tobacco Use History Tobacco Use History - heavy antiarmor weapons infantryman: Tobacco Use History - heavy antiarmor weapons infantryman Tobacco Use Smoking Status Never smoker 08/17/24 12:31 Hx Tobacco Use No 08/17/24 12:31 Years Smoking Packs Smoked per Day Smoking Cessation Date was within the last 15 years Hx Smoking Cessation Date Hx Smoking Cessation Counseling Hematologic Medial History Hematologic Hx - heavy antiarmor weapons infantryman: Hematologic Medical Hx - felt finisher Hx of Blood Transfusion No 08/17/24 12:31 Hx of Transfusion in last 3 No 08/17/24 12:31 Months Date of Last Transfusion (if within last 3 months) Ever experience any problems No 08/17/24 12:31 with transfusion(s)? Specify any problems Hx of Preganancy in last 3 No 08/17/24 12:31 Months Nurse Filling Out Transfusion VCHRISTIN 08/17/24 12:31 & Questions: Date: 08/17/24 08/17/24 12:31 Time: 12:32 08/17/24 12:31 Patient unable to answer at this time (ie. confused, unrespo /Reproduction History /Reproductive History - heavy antiarmor weapons infantryman: /Reproductive Hx- heavy antiarmor weapons infantryman Hx Now Gestational Age (in weeks): EDC: Hx Hx Para Hx Section SAB PFSH Medical History Cardiology follow-up encounter Wears glasses History of steroid therapy Arthritis Back pain Gastric reflux Non-smoker CPAP (continuous positive airway pressure) dependence History of irregular heartbeat Borderline type 2 diabetes mellitus Obesity Lumbar radiculopathy Mass of left axilla Sleep apnea Osteoarthritis (06/10/1967) Cataract (06/10/17) Cancer (09/07/07) Breast cancer (09/07/07) Osteoporosis Encounter for education Hypertension GERD (gastroesophageal reflux disease) Regional lymph node metastasis present Liver metastases Constipation SOB (shortness of breath) on exertion COVID Colon cancer Breast cancer Home Medications ?Medication ?Instructions ?Recorded ?Last Taken ?Type cholecalciferol (vitamin D3) 10 10 mcg PO DAILY 11/27/22 08/18/24 History mcg (400 unit) capsule losartan 50 mg tablet 50 mg PO BID 90 days #180 tabs 04/09/24 08/19/24 Rx metoprolol tartrate 25 mg tablet 25 mg PO BID 90 days #180 tabs 04/09/24 08/19/24 Rx pantoprazole 40 mg tablet,delayed 40 mg PO DAILY #90 tabs 06/16/24 Unknown Rx release magnesium gluconate 500 mg tablet 500 mg PO DAILY 08/17/24 08/17/24 History Allergy/AdvReac Type Severity Reaction Status Date / Time levofloxacin (From Levaquin) AdvReac Mild PT UNSURE Verified 08/19/24 12:28 OF REACTION Family History Sister Breast cancer, Onset Age: 58 Mother , age 92 Cancer unknown type Surgical History History of colonoscopy (10/27/20) History of cataract surgery (06/10/17) History of breast biopsy (09/07/07) History of thoracic surgery S/P lumpectomy, right breast History of surgery of liver S/P laparoscopic-assisted sigmoidectomy Social History adopted: No household members: spouse number of children: 3 current occupational status: retired pets and animals: No Smoking Status: Never smoker alcohol intake: never substance use type: does not use caffeine: No frequency: does not exercise seatbelt use: always do you feel safe at home: Yes Review of Systems (Anesthesia) ROS Narrative System reviewed and no additional complaints, except as documented.
--- NOTE | 2024-08-19 12:50 | HP.PCM_ITS ---
HPI - General General Date of Admission: 08/19/24 Date of Service: 08/19/24 Chief Complaint: Anemia and colon HPI Narrative CAROL CLINE, is a 79 F who presents for endoscopic evaluation of anemia and h/o colon cancer. She also has a history of recurrent primary malignant neoplasm of right breast cancer and osteoporosis she has been having some worsening constipation along with some worsening gastroesophageal reflux disease. She underwent radiation and tolerated without any problems. [facility] Medical History Cardiology follow-up encounter Wears glasses History of steroid therapy Arthritis Back pain Gastric reflux Non-smoker CPAP (continuous positive airway pressure) dependence History of irregular heartbeat Borderline type 2 diabetes mellitus Obesity Lumbar radiculopathy Mass of left axilla Sleep apnea Osteoarthritis (06/10/1967) Cataract (06/10/17) Cancer (09/07/07) Breast cancer (09/07/07) Osteoporosis Encounter for education Hypertension GERD (gastroesophageal reflux disease) Regional lymph node metastasis present Liver metastases Constipation SOB (shortness of breath) on exertion COVID Colon cancer Breast cancer Home Medications ?Medication ?Instructions ?Recorded ?Last Taken ?Type cholecalciferol (vitamin D3) 10 10 mcg PO DAILY 08/18/24 History mcg (400 unit) capsule losartan 50 mg tablet 50 mg PO BID 90 days #180 ta bs 04/09/24 08/19/24 Rx metoprolol tartrate 25 mg tablet 25 mg PO BID 90 days #180 tabs 04/09/24 08/19/24 Rx pantoprazole 40 mg tablet,delayed 40 mg PO DAILY #90 t abs 06/16/24 Unknown Rx release magnesium gluconate 500 mg tablet 500 mg PO DAILY 08/0808/17/24 History Allergy/AdvReac Type Severity Reaction Status Date / Time levofloxacin (From Levaquin) AdvReac Mild PT UNSURE Verified 08/19/24 12:28 OF REACTION Family History Sister Breast cancer, Onset Age: 58 Mother , age 92 Cancer unknown type Surgical History History of colonoscopy (10/27/20) History of cataract surgery (06/10/17) History of breast biopsy (09/07/07) History of thoracic surgery S/P lumpectomy, right breast History of surgery of liver S/P laparoscopic-assisted sigmoidectomy Social History adopted: No household members: spouse number of children: 3 current occupational status: retired pets and animals: No Smoking Status: Never smoker alcohol intake: never substance use type: does not use caffeine: No frequency: does not exercise seatbelt use: always do you feel safe at home: Yes ROS Constitutional Constitutional: Denies fatigue, fever(s), poor appetite, weight gain or weight loss Gastrointestinal Gastrointestinal: Denies belching, bloating, change in bowel habits, change in stool character, chewing difficulty, coffee ground emesis, constipation, cramping, diarrhea, dyspepsia, dysphagia, early satiety, excessive flatus, fecal incontinence, heartburn, hematemesis, hematochezia, hemorrhoids, loose stools, melena, nausea, odynophagia, rectal bleeding, tenesmus, vomiting or weight changes Vital Signs Vital Signs Vital Signs: 08/19/24 12:30 08/19/24 12:30 08/19/24 12:40 Temperature 97.6 F L 97.6 F L Temperature Source Temporal Pulse Rate 72 72 Respiratory Rate 14 14 Respiratory Pattern Normal Blood Pressure 126/70 H 126/70 H Blood Pressure Mean 88 Blood Pressure Source Monitor Blood Pressure Position Semi-Fowlers Blood Pressure Location Left Arm Pulse Ox 100 100 Oxygen Delivery Method Room Air Weight Weight: 171 lb 15.369 oz Body Mass Index (BMI) 30.4 Physical Exam Const alert, oriented x3, no apparent distress and healthy appearing General Appearance: cooperative GI normal to inspection, nondistended, normoactive bowel sounds, soft to palpation, non-tender and non-distended Percussion: normal to percussion Rectal Exam: deferred Assessment & Plan Assessment/Plan (1) Anemia: (2) Colon cancer: QUALIFIERS: Colon location: unspecified part of colon Qualified Code(s): C18.9 - Malignant neoplasm of colon, unspecified PLAN: She will undergo upper or lower endoscopy. She was explained alternatives , risk and benefits include not withstanding bleeding, infection, sepsis, perforation, need for emergent urgent . She have an ASA of 3.
--- NOTE | 2024-08-19 13:15 | EGD_PTH ---
PATIENT: CAROL CLINE LOC: EN U#:[id number] AGE/SX: 79/F ROOM: RE08/19/[address]: Dr. Antonio Thornton DO : 1945 BED: DIS: 08/19/2024 SPEC #: [id number] RECD: 08/20/24 11:16 STATUS: DOUG REQ #: [id number] ERAN: 08/19/24 13:[address]: Antonio Thornton DEPT: SURGICAL PATHOLOGY RECD BY: Carlos Eduardo Randhawa ENTERED: 08/20/24 11:16 SP TYPE: EGD BIOPSY TORI DR: Dr. Ana Ascencio MD Tissues: A - Esophagus, NOS B - Gastric mucous membrane Procedures: Immunohistochemical Stains Surgery Specimen Level IV HEADER OPERATION: Colonoscopy, EGD with biopsies PRE-OP DIAGNOSIS: Anemia, colon cancer TISSUE SUBMITTED: A- Distal esophagus biopsy, B- Gastric body biopsy MICROSCOPIC DIAGNOSIS A. Distal esophagus, biopsy: * Squamous mucosa with reactive change. * Columnar mucosa negative for goblet cell metaplasia. B. Stomach, body, biopsy: * Few dilated fundic glands suggestive of fundic gland polyp. * IHC is negative for H pylori. MICROSCOPIC DESCRIPTION Slides are reviewed. These tests were developed and their performance characteristics determined by [facility]. They may not have been cleared or approved by the U.S. Food and Drug Administration. The FDA has determined that such clearance or approval is not necessary. The above immunohistochemical/dualISH markers are ordered and reviewed by the Pathologist. GROSS DESCRIPTION A. Received in fixative is one container labeled with the patient's name and designated Distal esophagus biopsy. The specimen consists of one irregular fragment of light albert soft tissue that measures 0.5 x 0.3 x 0.1 cm. The specimen is totally submitted in one cassette. B. Received in fixative is one container labeled with the patient's name and designated Gastric body biopsy. The specimen consists of multiple irregular fragments of light albert soft tissue that in aggregate measure 0.7 x 0.3 x 0.2 cm. The specimen is totally submitted in one cassette. 08/20/2024 CPT:50088t4,43385
--- NOTE | 2024-08-19 13:34 | PCM.POST.ANE ---
Anesthesia: Postop Eval I Current Vital Signs Temperature: 98.2 F Pulse Rate: 64 Blood Pressure: 96/56 Respiratory Rate: 16 Pulse Ox: 96 Oxygen Delivery Method: Room Air Assessment Airway patent: Yes Spontaneous unlabored respirations: Yes Mental status: Asleep nausea: No Vomiting: No Anesthesia Complication: No Fluid Hydration Crystalloid volume administer (ml): 60 Total IV fluid infused: 60 Progress Note Anesthesia document: Postop Eval 1 completed: Yes
--- NOTE | 2024-08-19 13:38 | OP.CCLET_ITS ---
08/19/2024 Ana Ascencio MD [address] [place] [address] [place] [address] Re : Upper GI endoscopy procedure for Jo Galvez Dear Dr. Ascencio This procedure was performed on Monday, August 19, 2024. My impressions and recommendations are as follows: Impressions : - Z-line irregular, 39 cm from the incisors. Biopsied. - Erythematous mucosa in the gastric body. Biopsied. - No gross lesions in the second portion of the duodenum. Recommendations : - Discharge patient to home. - Resume previous diet. - Continue present medications. - Await pathology results. My findings are described in the full procedure note, which is enclosed. If I can be of further assistance, please feel free to contact me at . Sincerely, Antonio Thornton, 08/19/2024 1:37:35 PM This report has been signed electronically.
--- NOTE | 2024-08-19 13:38 | OP.EGD_ITS ---
Patient Name: Jo Galvez Procedure Date: 08/19/2024 12:56 PM Date of : 1945 Age: 79 Procedure: Upper GI endoscopy Indications: Heartburn Providers: Antonio Thornton DO Referring MD: Ana Ascencio MD Medicines: Monitored Anesthesia Care Patient Profile: This is a 79 year old female. Refer to note in patient chart for documentation of history and physical. Patient has symptoms of chronic heartburn. Complications: No immediate complications. Procedure: Pre-Anesthesia Assessment: - Prior to the procedure, a History and Physical was performed, and patient medications and allergies were reviewed. The patient is competent. The risks and benefits of the procedure and the sedation options and risks were discussed with the patient. All questions were answered and informed consent was obtained. Patient identification and proposed procedure were verified by the physician in the pre-procedure area. Mental Status Examination: alert and oriented. Airway Examination: normal oropharyngeal airway and neck mobility. Respiratory Examination: clear to auscultation. CV Examination: normal. ASA Grade Assessment: II - A patient with mild systemic disease. After reviewing the risks and benefits, the patient was deemed in satisfactory condition to undergo the procedure. The anesthesia plan was to use monitored anesthesia care (MAC). Immediately prior to administration of medications, the patient was re-assessed for adequacy to receive sedatives. The heart rate, respiratory rate, oxygen saturations, blood pressure, adequacy of pulmonary ventilation, and response to care were monitored throughout the procedure. The physical status of the patient was re-assessed after the procedure. After obtaining informed consent, the endoscope was passed under direct vision. Throughout the procedure, the patient's blood pressure, pulse, and oxygen saturations were monitored continuously. The pediatric colonoscope was introduced through the mouth, and advanced to the second part of duodenum. The upper GI endoscopy was accomplished without difficulty. The patient tolerated the procedure well. Scope In: 1:10:30 PM Scope Out: 1:14:17 PM Total Procedure Duration Time 0 hours 3 minutes 47 seconds Findings: The Z-line was irregular and was found 39 cm from the incisors. Biopsies were taken with a cold forceps for histology. Verification of patient identification for the specimen was done. Estimated blood loss was minimal. Patchy mildly erythematous mucosa without bleeding was found in the gastric body. Biopsies were taken with a cold forceps for histology. Verification of patient identification for the specimen was done. Estimated blood loss was minimal. Biopsies were taken with a cold forceps for Helicobacter pylori testing. Verification of patient identification for the specimen was done. Estimated blood loss was minimal. No gross lesions were noted in the second portion of the duodenum. Impression: - Z-line irregular, 39 cm from the incisors. Biopsied. - Erythematous mucosa in the gastric body. Biopsied. - No gross lesions in the second portion of the duodenum. Recommendation: - Discharge patient to home. - Resume previous diet. - Continue present medications. - Await pathology results. Procedure Code(s): --- Professional --- 03197, Esophagogastroduodenoscopy, flexible, transoral; with biopsy, single or multiple CPT copyright 2021 [employer]. All rights reserved. The codes documented in this report are preliminary and upon salesperson florist supplies review may be revised to meet current compliance requirements. Anotnio Thornton DO 08/19/2024 1:37:35 PM This report has been signed electronically. Number of Addenda: 0 Note Initiated On: 08/19/2024 12:56 PM
--- NOTE | 2024-08-19 13:40 | OP.COLON_ITS ---
Patient Name: Jo Galvez Procedure Date: 08/19/2024 1:14 PM Date of : 1945 Age: 79 Procedure: Colonoscopy Indications: High risk colon cancer surveillance: Personal history of colon cancer Providers: Antonio Thornton DO Referring MD: Ana Ascencio MD Medicines: Monitored Anesthesia Care Patient Profile: This is a 79 year old female. Refer to note in patient chart for documentation of history and physical. Patient has symptoms of chronic heartburn. Last Colonoscopy: 5 years ago. Complications: No immediate complications. Procedure: Pre-Anesthesia Assessment: - Prior to the procedure, a History and Physical was performed, and patient medications and allergies were reviewed. The patient is competent. The risks and benefits of the procedure and the sedation options and risks were discussed with the patient. All questions were answered and informed consent was obtained. Patient identification and proposed procedure were verified by the physician in the pre-procedure area. Mental Status Examination: alert and oriented. Airway Examination: normal oropharyngeal airway and neck mobility. Respiratory Examination: clear to auscultation. CV Examination: normal. ASA Grade Assessment: II - A patient with mild systemic disease. After reviewing the risks and benefits, the patient was deemed in satisfactory condition to undergo the procedure. The anesthesia plan was to use monitored anesthesia care (MAC). Immediately prior to administration of medications, the patient was re-assessed for adequacy to receive sedatives. The heart rate, respiratory rate, oxygen saturations, blood pressure, adequacy of pulmonary ventilation, and response to care were monitored throughout the procedure. The physical status of the patient was re-assessed after the procedure. After I obtained informed consent, the scope was passed under direct vision. Throughout the procedure, the patient's blood pressure, pulse, and oxygen saturations were monitored continuously. The pediatric colonoscope was introduced through the anus and advanced to the terminal ileum. The colonoscopy was performed without difficulty. The patient tolerated the procedure well. The quality of the bowel preparation was adequate. The terminal ileum, ileocecal valve, appendiceal orifice, and rectum were photographed. Scope In: 1:15:18 PM Scope Withdrawal Time 0 hours 9 minutes 31 seconds Scope Out: 1:26:23 PM Total Procedure Duration Time 0 hours 11 minutes 5 seconds Findings: The perianal and digital rectal examinations were normal. There was evidence of a prior end-to-side colo-colonic anastomosis in the recto-sigmoid colon. This was patent and was characterized by healthy appearing mucosa. The anastomosis was traversed. The exam was otherwise without abnormality on direct and retroflexion views. Impression: - Patent end-to-side colo-colonic anastomosis, characterized by healthy appearing mucosa. - The examination was otherwise normal on direct and retroflexion views. - No specimens collected. Recommendation: - Discharge patient to home. - Resume previous diet. - Continue present medications. - Repeat colonoscopy in 5 years for surveillance. Procedure Code(s): --- Professional --- 91565, Colonoscopy, flexible; diagnostic, including collection of specimen(s) by brushing or washing, when performed (separate procedure) CPT copyright 2021 [employer]. All rights reserved. The codes documented in this report are preliminary and upon associate professor of biostatistics review may be revised to meet current compliance requirements. Antonio Thornton DO 08/19/2024 1:39:31 PM This report has been signed electronically. Number of Addenda: 0 Note Initiated On: 08/19/2024 1:14 PM
--- NOTE | 2024-08-19 13:40 | OP.CCLET_ITS ---
08/19/2024 Ana Ascencio MD [address] [place] [address] [place] [address] Re : Colonoscopy procedure for Jo Galvez Dear Dr. Ascencio This procedure was performed on Monday, August 19, 2024. My impressions and recommendations are as follows: Impressions : - Patent end-to-side colo-colonic anastomosis, characterized by healthy appearing mucosa. - The examination was otherwise normal on direct and retroflexion views. - No specimens collected. Recommendations : - Discharge patient to home. - Resume previous diet. - Continue present medications. - Repeat colonoscopy in 5 years for surveillance. My findings are described in the full procedure note, which is enclosed. If I can be of further assistance, please feel free to contact me at . Sincerely, Antonio Friend, 08/19/2024 1:39:31 PM This report has been signed electronically.
--- NOTE | 2024-08-19 14:10 | PCM.POSTANE2 ---
Anesthesia Postop Eval I Sum Postop Eval Completion status Anesthesia document: Postop Eval 1 completed: Yes Anesthesia Postop Eval I Summary Anesthesia Postop Eval I Summary: Anesthesia Postop Eval I: Assessment Summary Airway patent Yes 08/19/24 13:34 [email or web address] Spontaneous unlabored Yes 08/19/24 13:34 [email or web address] respirations Mental status Asleep 08/19/24 13:34 [email or web address] nausea No 08/19/24 13:34 [email or web address] Vomiting No 08/19/24 13:34 [email or web address] Anesthesia Postop Eval I: Fluid Summary Crystalloid volume administer 60 08/19/24 13:34 [email or web address] (ml) Colloids volume administered ( ml) Blood Product volume administered (ml) Total IV fluid infused 60 08/19/24 13:34 [email or web address] Anesthesia Postop Eval I: Summary Notes Anesthesia Complication No 08/19/24 13:34 [email or web address] Anesthesia Complication Comment: Post-operative progress note Anesthesia: Postop Eval II Evaluation Mental status: Awake Pain Level: 0 nausea: No Vomiting: No
== END 2024-08-19 14:20 | disposition home or self-care (01) ==
LOC: EN 12:11 → AC 12:12
PROVIDERS: PCP Internal Medicine; Referring Provider Internal Medicine; Visit Provider Internal Medicine Gastroenterology
PROC: 0DJD8ZZ Inspection of Lower Intestinal Tract, Via Natural or Artificial Opening Endoscopic (ICD-10-PCS; CPT 45378; principal; 2024-08-19 13:10)
DX: Z12.11 Encounter for screening for malignant neoplasm of colon (principal); D64.9 Anemia, unspecified; K21.9 Gastro-esophageal reflux disease without esophagitis; I10 Essential (primary) hypertension; G47.30 Sleep apnea, unspecified; K63.89 Other specified diseases of intestine; Z92.3 Personal history of irradiation; Z79.899 Other long term (current) drug therapy; Z86.16 Personal history of COVID-19; Z85.3 Personal history of malignant neoplasm of breast; Z85.038 Personal history of other malignant neoplasm of large intestine
CPT/HCPCS: G0121; 43239; 88305; 88342; J2405

== ENCOUNTER → 2024-09-28 | Outpatient (CLI) | payer MEDICARE, BC, SELFPAY | END | disposition home or self-care (01) | LOC: LABSPEC 17:26 | PROVIDERS: PCP Internal Medicine; Visit Provider Physician Assistant | DX: R35.0 Frequency of micturition (principal) | CPT/HCPCS: 87077; 87086; 87088; 87186 ==

== ENCOUNTER 2024-10-02 09:00 | Outpatient (RCR) | payer MEDICARE, BC, SELFPAY ==
--- NOTE | 2024-08-17 10:22 | HP.PTEVAL_ITS ---
Patient's Visit Information Visit Information Visit Information: CRAOL CLINE is a 79 year old F referred to Physical Therapy by Dr. Ana Ascencio MD with a diagnosis of Lumbar radiculopathy. Date of Evaluation: 08/17/24 Physical Therapist: Jason Oliver, DPT, OCS, CSCS Visit Plan Frequency: 3x /Week Duration: 4-6 Weeks Plan: 3x/week for 3-6 weeks...(treating hip bursitis and core strength) 1. US nonthermal to L GT bursa area 2. STM ITB adn TFL L, management of bursitis education DO THESE EACH SESSION 3. strength hips and core to HEP 4. general gym based ex for core, hips LE and posture to I. ie hep: TRUNK ROTATION, HIP rom, PELVIC TILT pOST 10X 2X/DAY ADN itb STRETCH IN SIDELYING 30 5 X DAILY, AVOID LYING l SIDE ADN USE PILLOW AT NIGHT, AVOID AGGRAVATING ACTIVITY Subjective Subjective: L hip and LBP which moves around. Getting out of chair hurts L leg and needs to push with UE due to pain. That has been going on since February. Has OA in LB and throughout body. Sometime in January she fell tripping on patio threshold and hit R knee and twisted to side, not sure if that started this or not. X ray of back showed degeneration. Also has OP. No hip diagnostics. Pain in back is chronic and worse with lifting L leg and makes it hard to put pants on. Pain quad and into lateral upper left leg, worse at night lying on L side. Back has been better lately. Carried load of laundry hurt but did it this am without a problm for first time. Basic ADLS all I.Not employed, Free time is spent staying busy, drives alot and not worse with driving. No regular exercisees. Pain L leg pain: Pain Intensity (Out of 10): 2 Pain Intensity Range: 0 and 8 Objective Objective: I gait but L trendelenberg adn some pain L hip today. Steps weak on L side adn painful up and down. Transfer hard chair I and painfree, lower surface would b e painful subjectively. Max tender L GT bursa area. Also into ITB and TFL moderately. LB AROM WFL adn without increased pain, good pelvic mobility. ITB tight B, HS tight min -25 90/90 test B. quads tight at 100 degrees knee flexion prone. hip and knee adn ankle aROM otherwise WFL. - [place], - FADDIR L. reflexes 2/3 patella and achilles Sensation LE WNL to gross light touch B L strength core and hips 3+, pain with L hip abduction. abd and ext hips 3/5. flexion 4- knee and ankle strength 4/5 Balance/Special Test Scores Oswestry Low Back Score: 10 Goals Goal 1:: I appropriate HEP to limit future bursitis problems and LB degeneration, home leg stretches and gym strengthening. Goal Time Frame: 4-6 Weeks Goal 2:: Pain L leg 0/10 at rest adn 90% better overall Goal Time Frame: 4-6 Weeks Goal 3:: up from couch without pain Goal Time Frame: 4-6 Weeks Goal 4:: sleep without interruption Goal Time Frame: 4-6 Weeks Goal 5:: stesp and walking without antalgia Goal Time Frame: 4-6 Weeks Rehabilitation Potential Physical Therapy Diagnosis: degenerative changes in LB and tightness L hip leading to pain and diminished comfort with funciton, Bursitis is apparent. Rehabilitation Potential: Good Anticipated Interventions Patient/Client Instruction: Educate patient on: Condition and Plan of Care For the Purpose of:: To decrease pain, To increase ROM, To improve nutrient delivery to tissue, To improve muscle performance and motor function, To increa se tolerance to activity/condition/position and To improve ability of physical actions for home/community/work/leisure Therapeutic Exercise to Include: Strength training, Postural training, Flexibilty training, Passive ROM and Active ROM For the Purpose of:: To decrease pain, To increase ROM, To improve nutrient delivery to tissue, To improve muscle performance and motor function, To increase tolerance to activity/condition/position and To improve performance and independence with ADL's Manual Therapy Techniques to Include: Mobilization, Passive ROM and Soft tissue mobilization For the Purpose of:: To decrease pain, To decrease swelling/inflammation, To increase ROM and To improve nutrient delivery to tissue Cryotherapy (ice pack, ice massage): Yes Ultrasound (thermal/non thermal): Yes (nonthermal) For the Purpose of:: To decrease pain, To increase ROM, To improve nutrient delivery to tissue, To improve muscle performance and motor function and To increase tolerance to activity/condition/position Text: Thank you for the opportunity to evaluate your patient. For Medicare and Medicare HMO plans, please review the plan of care and approve it. It will need to be FAXED BACK to us at [phone] for Medicare purposes. For Medicare only, by signing this I certify the plan of care. Please let me know if there are questions or concerns regarding this plan of care. Physician Signature: Date:
--- NOTE | 2024-10-02 09:27 | HP.PTDCSUM_ITS ---
Discharge Summary D/C summary: It has been my pleasure to treat CAROL CLINE referred by Dr. Ana Ascencio MD, with the diagnosis of Lumbar radiculopathy for a total of 15 visit(s). Discharge Date: 10/02/24 Please see the following information for a summary of their discharge status. Subjective Subjective: Had a setback. Walking down basement stairs with arm of laundry and missed last step and hit hard on L leg. It hurt for a biut. Otherwise no proble m, still lifting leg and putting pressure on it when very active it hurts. Back is better than 6 weeks ago but peg pain not coming along. No more back pain. L leg is bigger problem with lifting. Pain L leg pain: Pain Intensity (Out of 10): 8 L UT: Pain Intensity (Out of 10): 5 Back: Pain Intensity (Out of 10): 0 Overall Improvement % Improvement: 60 Objective Objective/Function: LB AROM WFL and smooth adn painfree, no leg symptoms with these. Still max tender L GT area in hip and mod tight ITB and quad L with pain with stretching transiently. Slow improvement to overal pain and funciton but frustrating for patient in hip pain with steps and lifting L leg. Goals Goal 1:: I appropriate HEP to limit future bursitis problems and LB degeneration, home leg stretches and gym strengthening. Goal Progress: Goal Met Goal 2:: Pain L leg 0/10 at rest adn 90% better overall Goal Progress: 60-70 Goal 3:: up from couch without pain Goal Progress: Not Progressing Goal 4:: sleep without interruption Goal Progress: Goal Met Goal 5:: stesp and walking without antalgia Goal Progress: Not Progressing leg Plan Plan: d/c to gyma dn home program, pt to contact doctor if wants further interventions. D/C Information Discharge Comments: Pt to continue I streetches, HEP and gym and contact doctor if progress stagnates. back much better but L hip still hurts. d/c sentence: If there are questions or concerns regarding this patient's physical therapy, please feel free to call me at [phone]. Thank you for the referral of this patient. Sincerely, Jason Oliver, DPT, OCS, CSCS Balance/Gait/Functional tests Balance/Special Test Scores Oswestry Low Back Score: 4 Improvement % Improvement: 60
== END 2024-10-02 19:00 | disposition home or self-care (01) ==
LOC: PT 09:00
PROVIDERS: PCP Internal Medicine; Referring Provider Internal Medicine; Visit Provider Internal Medicine
DX: M54.16 Radiculopathy, lumbar region (principal)
CPT/HCPCS: 97035; 97110; 97140; 97161; 97164; 97530

== ENCOUNTER → 2025-03-31 | Outpatient (CLI) | payer MEDICARE, BC, SELFPAY ==
--- NOTE | 2025-03-31 10:00 | BI_ITS ---
EXAM: SCRN MAMM (CAD)W/LYNDON BILAT DATE: 03/31/2025 CLINICAL HISTORY: F, Age 80 y/o , FOLLOW UP TREATED BREAST CANCER Personal history of breast cancer. Prior right lumpectomy and radiation. Sister with breast cancer. TECHNIQUE: Procedure Code: [id number] Modality: MG Procedure: SCRN MAMM (CAD)W/LYNDON BILAT COMPARISON: Prior exam(s) dated March 30, 2024.. FINDINGS: TISSUE DENSITY: The breasts are heterogeneously dense, which may obscure small masses. Bilateral Breast Mammographic Findings: No significant masses, calcifications or other abnormalities are identified. Once again, the patient is status post lumpectomy in the central outer aspect of the right breast with resultant postoperative scarring. Surgical clips are also seen in the right axilla. No suspicious masses, areas of developing architectural distortion, or suspicious calcifications. There has been no significant interval change. BI/SCRN MAMM (CAD)W/LYNDON BILAT IMPRESSION: Stable bilateral screening mammogram. OVERALL FINAL ASSESSMENT BI-RADS 2: BENIGN RECOMMENDATION: Routine annual follow-up in 1 Year Additional Recommendation none A letter with findings and recommendations will be mailed to the patient. Reading Location: [place] [id number]
--- NOTE | 2025-03-31 10:00 | BI_ITS ---
EXAM: SCRN MAMM (CAD)W/LYNDON BILAT DATE: 03/31/2025 CLINICAL HISTORY: F, Age 80 y/o , FOLLOW UP TREATED BREAST CANCER Personal history of breast cancer. Prior right lumpectomy and radiation. Sister with breast cancer. TECHNIQUE: Procedure Code: [id number] Modality: MG Procedure: SCRN MAMM (CAD)W/LYNDON BILAT COMPARISON: Prior exam(s) dated March 30, 2024.. FINDINGS: TISSUE DENSITY: The breasts are heterogeneously dense, which may obscure small masses. Bilateral Breast Mammographic Findings: No significant masses, calcifications or other abnormalities are identified. Once again, the patient is status post lumpectomy in the central outer aspect of the right breast with resultant postoperative scarring. Surgical clips are also seen in the right axilla. No suspicious masses, areas of developing architectural distortion, or suspicious calcifications. There has been no significant interval change. BI/SCRN MAMM (CAD)W/LYNDON BILAT IMPRESSION: Stable bilateral screening mammogram. OVERALL FINAL ASSESSMENT BI-RADS 2: BENIGN RECOMMENDATION: Routine annual follow-up in 1 Year Additional Recommendation none A letter with findings and recommendations will be mailed to the patient. Reading Location: [place] [id number]
== END | disposition home or self-care (01) ==
LOC: OPBI 09:52
PROVIDERS: PCP Internal Medicine; Referring Provider Student in an Organized Health Care Education/Training Program; Visit Provider Student in an Organized Health Care Education/Training Program
DX: Z12.31 Encounter for screening mammogram for malignant neoplasm of breast (principal); C50.911 Malignant neoplasm of unspecified site of right female breast
CPT/HCPCS: 77063; 77067